=== PATIENT | female | born 1985 | race Hispanic/Latino ===

== ENCOUNTER 2018-02-16 09:32 | Emergency (ER) | payer BC, OTHER ==
[2018-02-16] MEDS ORDERED: Sodium Chloride 0.9% 1,000 ML IV SCH (10:00)
[2018-02-16] MEDS ORDERED: Iodixanol 320 MG/ML 100 ML BOTTLE IV ONE (10:13)
[2018-02-16] MEDS ORDERED: Sodium Chloride 0.9% 100 ML ONE (10:15)
--- NOTE | 2018-02-16 10:19 | CT ---
PROCEDURE: CT HEAD WITHOUT CONTRAST. HISTORY: code stroke COMPARISON: None available. TECHNIQUE: Axial computed tomography images were obtained through the head/brain without intravenous contrast. Radiation dose: Total exam DLP = 807.30 mGy-cm. This CT exam was performed using one or more of the following dose reduction techniques: Automated exposure control, adjustment of the mA and/or kV according to patient size, and/or use of iterative reconstruction technique. FINDINGS: HEMORRHAGE: No intracranial hemorrhage. BRAIN: Khan-white matter differentiation is preserved. There is no mass, mass effect or abnormal extra-axial fluid collection. There is no territorial infarction. VENTRICLES: The ventricles are normal in size, shape and configuration. CALVARIUM: The skull base and calvarium are normal. PARANASAL SINUSES: There is mild mucosal thickening in the right maxillary sinus and chronic right ethmoid sinusitis. The remaining included paranasal sinuses are predominantly clear. MASTOID AIR CELLS: Predominantly clear. OTHER FINDINGS: None. IMPRESSION: No acute intracranial abnormality. If there is a persistent focal neurologic deficit and an ongoing clinical concern for acute infarction, an MRI of the brain without intravenous contrast would be a more sensitive modality for evaluation of hyperacute/acute ischemic infarction. Important findings were discussed with Dr. Manuela Palacio in the ER on 02/16/2018 at 10:17 a.m.
[2018-02-16 10:27] LABS: BASO % 0.4 % (0.0-2.0); EOS # 0.1 K/uL (0.0-0.7); EOS % 2.2 % (0.0-4.0); HEMOGLOBIN 12.1 g/dL (12.0-16.0); LYMPH # 2.3 K/uL (1.0-4.3); LYMPH % 34.5 % (20.0-40.0); MEAN CELL VOLUME 88.9 fl (81.0-99.0); MEAN CORPUSCULAR HEMOGLOBIN 29.8 pg (27.0-31.0); MEAN CORPUSCULAR HGB CONC 33.5 g/dL (33.0-37.0); MEAN PLATELET VOLUME 8.5 fl (7.2-11.7); MONO # 0.6 K/uL (0.0-0.8); MONO % 9.1 % (0.0-10.0); NEUT # 3.5 K/uL (1.8-7.0); NEUT % 53.8 % (50.0-75.0); RBC 4.07 Mil/uL (3.80-5.20); RED CELL DISTRIBUTION WIDTH 13.6 % (11.5-14.5); WHITE BLOOD COUNT 6.6 K/uL (4.8-10.8)
[2018-02-16 10:44] LABS: ALB/GLOB RATIO 1.3 (1.0-2.1); ALBUMIN 4.1 g/dL (3.5-5.0); ALT/SGPT 60 U/L (9-52); AST/SGOT 45 U/L (14-36); BLOOD UREA NITROGEN 13 mg/dl (7-17); CALCIUM 9.4 mg/dL (8.4-10.2); GFR AFRICAN-AMERICAN > 60; GFR NON-AFRICAN AMERICAN > 60; HDL CHOLESTEROL 58 MG/DL (30-70); PARTIAL THROMBOPLASTIN TIME 29.6 Seconds (25.6-37.1); PROTHROMBIN TIME 10.5 Seconds (9.8-13.1)
[2018-02-16 10:55] LABS: LDL CHOLESTEROL 82 mg/dL (0-129)
--- NOTE | 2018-02-16 11:17 | ED PDOC ---
HPI:STROKE - Time Time: 09:50 - Historian Historian: Patient - Onset Date: 02/16/18 Time: 08:30 - TPA Positive for Contraindication: Yes - Notes: Notes:: Pt reports L sided ASHFORD since yesterday, took Excedrin with relief, started having blurry vision in the LLQ of L eye @ 8:30 AM today, when reading something some letters disappeared, lasted ~1 hour, resolved at present. Pt is 7 weeks post-, no blood pressure issues during but had migraines. Restarted on OCP 1.5 weeks ago. NIHSS Stroke Scale - Date/Time Evaluation Performed Date Performed: 02/16/18 Time Performed: 09:55 When Was NIHSS Performed: Code Stroke - How Severe is the Stroke Level of Consciousness: 0=Alert LOC to Questions: 0=Both comments correct LOC to commands: 0=Obeys both correctly Best Gaze: 0=Normal Visual: 0=No visual loss Facial: 0=Normal Motor Arm - Left: 0=No drift Motor Arm - Right: 0=No drift Motor Leg - Left: 0=No drift Motor Leg - Right: 0=No drift Limb Ataxia: 0=Absent Sensory: 0=Normal Best Language: 0=No aphasia Dysarthia: 0=Normal articulation Extinction & Inattention (Neglect): 0=Normal, no object Score: 0 rTPA Inclusion/Exclusion - Refusal of Treatment Patient Refused Treatment: No - Inclusion Criteria for Altepase Patient is 18 years or Older: Yes The Clinical Diagnosis of Ischemic Stroke That is Causing a Potentially Disabling Neurological Deficit: Yes Time of Onset is Well Established to be Less Than 270 Minute Before Treatment Would Begin: Yes Risk/Benefit Discussed With Patient/Family Member Present: No - Warning to TPA With Conditions Condition: Rapid Improvement Past Medical History Reviewed: Nursing Documentation, Vital Signs Vital Signs: Last Vital Signs Temp 97 F L 02/16/18 10:04 Pulse 47 L 02/16/18 10:48 Resp 20 02/16/18 10:48 BP 148/82 02/16/18 10:04 Pulse Ox 99 02/16/18 10:48 - Medical History PMH: Migraine - Surgical History Surgical History: Tonsillectomy - Family History Family History: States: Unknown Family Hx - Living Arrangements Living Arrangements: With Family - Social History Current smoker - smoking cessation education provided: No Alcohol: None - Home Medications Home Medications: Ambulatory Orders Medication Instructions Recorded Levonorgest/Eth.estradiol/Iron 1 tab PO HS 02/16/18 [Balcoltra Tablet] Naproxen [Naprosyn] 500 mg PO BID PRN #15 tablet 02/16/18 Multivit/Folic Acid/I 1 tab PO HS 02/16/18 [] - Allergies Allergies/Adverse Reactions: Allergies Allergy/AdvReac Type Severity Reaction Status Date / Time No Known Allergies Allergy Verified 02/16/18 10:04 Review of Systems Constitutional: Negative for: Fever, Chills Eyes: Positive for: Vision Change. Negative for: Redness Cardiovascular: Negative for: Chest Pain, Palpitations Respiratory: Negative for: Cough, Shortness of Breath Gastrointestinal: Negative for: Nausea, Vomiting, Abdominal Pain, Diarrhea Musculoskeletal: Negative for: Neck Pain, Back Pain Skin: Negative for: Rash, Lesions Neurological: Negative for: Weakness, Numbness, Incoordination, Change in Speech , Confusion, Seizures, Altered Mental Status, Headache, Dizziness Physical Exam - Reviewed Nursing Documentation Reviewed: Yes Vital Signs Reviewed: Yes - Physical Exam Appears: Positive for: In Acute Distress (Crying) Head Exam: Positive for: ATRAUMATIC, NORMAL INSPECTION Skin: Positive for: Normal Color, Warm, Dry Eye Exam: Positive for: Normal appearance, EOMI, PERRL. Negative for: Nystagmus , Periorbital swelling, Periorbital tenderness, Conjunctival injection, Scleral icterus Neck: Positive for: Normal, Painless ROM, Supple Cardiovascular/Chest: Positive for: Bradycardia. Negative for: Irregularly Irregular Respiratory: Positive for: Normal Breath Sounds Extremity: Positive for: Normal ROM Neurologic/Psych: Positive for: Alert, curator medical museum II-XII, Oriented. Negative for: Motor/Sensory Deficits, Aphasia, Facial Droop - Laboratory Results Result Diagrams: 02/16/18 10:18 02/16/18 10:18 - ECG Interpretation Of ECG: Sinus matt @ 37, no ST-T changes. O2 Sat by Pulse Oximetry: 99 Pulse Ox Interpretation: Normal - Progress ED Course And Treament: ASHFORD has resolved. Re-evaluation Time: 14:30 Condition: Improved - Physician Consult Information Time Consulting Physican Contacted: 10:00 Physician Contacted: Geoff Siegel Outcome Of Conversation: Recommends CT head, CTA, MRI brain and MRV brain. - Core Measure Core Measure Indicators: Code Stroke - Critical Care Total Time (In Min): 45 Medical Decision Making Medical Decision Makin yo with transient visual change. - code stroke - labs - EKG - CXR - CT head - Neuro consult Accession No. : [id number] Patient Name / ID : BETY CROSS / [id number] Exam Date : 02/16/2018 10:02:19 ( Approved ) Study Comment : Sex / Age : F / 32Y Creator : Ana Martin MD Dictator : Ana Martin MD Entry Specialists : Finance Associate : Ana Martin MD Approver2 : Report Date : 02/16/2018 10:17:59 My Comment : PROCEDURE: CT HEAD WITHOUT CONTRAST. HISTORY: code stroke COMPARISON: None available. TECHNIQUE: Axial computed tomography images were obtained through the head/brain without intravenous contrast. Radiation dose: Total exam DLP = 807.30 mGy-cm. This CT exam was performed using one or more of the following dose reduction techniques: Automated exposure control, adjustment of the mA and/or kV according to patient size, and/or use of iterative reconstruction technique. FINDINGS: HEMORRHAGE: No intracranial hemorrhage. BRAIN: Khan-white matter differentiation is preserved. There is no mass, mass effect or abnormal extra-axial fluid collection. There is no territorial infarction. VENTRICLES: The ventricles are normal in size, shape and configuration. CALVARIUM: The skull base and calvarium are normal. PARANASAL SINUSES: There is mild mucosal thickening in the right maxillary sinus and chronic right ethmoid sinusitis. The remaining included paranasal sinuses are predominantly clear. MASTOID AIR CELLS: Predominantly clear. OTHER FINDINGS: None. IMPRESSION: No acute intracranial abnormality. If there is a persistent focal neurologic deficit and an ongoing clinical concern for acute infarction, an MRI of the brain without intravenous contrast would be a more sensitive modality for evaluation of hyperacute/acute ischemic infarction. Accession No. : [id number] Patient Name / ID : BETY CROSS / [id number] Exam Date : 02/16/2018 10:18:55 ( Approved ) Study Comment : Sex / Age : F / 32Y Creator : Ana Martin MD Dictator : Ana Martin MD Entry Specialists : Finance Associate : Ana Martin MD Approver2 : Report Date : 02/16/2018 11:25:24 My Comment : PROCEDURE: CTA HEAD AND NECK WITH CONTRAST HISTORY: Headache and blurry lesion COMPARISON: None available. TECHNIQUE: Initial noncontrast head CT was performed. Subsequently, CT angiogram of the head and neck were performed after the intravenous administration of 80 mL of Omnipaque 350. Contiguous 1.5mm thick images were obtained in the axial plane of the neck. 2-D coronal and sagittal MPR images were obtained. Imaging postprocessing was performed with 3-D images also obtained. A delayed contrast head CT was also obtained. This CT exam was performed using one or more of the following dose reduction techniques: Automated exposure control, adjustment of the mA and/or kV according to patient size, and/or use of iterative reconstruction technique. Contrast dose: 100 mL Visipaque 320 Radiation dose: Total exam DLP = 533.47 mGy-cm. FINDINGS: HEAD: Right: The intracranial internal carotid artery, and anterior and middle cerebral arteries are widely patent. The right A1 segment is hypoplastic, an anatomic variant. Left: The intracranial internal carotid artery, and anterior and middle cerebral arteries are widely patent. Posterior circulation: The visualized intracranial vertebral arteries, basilar artery and posterior cerebral arteries are widely patent. Ther is no endoluminal filling defect to suggest thrombus. There is no intracranial saccular aneurysm. NECK: There is a three vessel aortic arch. There is no stenosis at the origins of the great vessels at the level of the aortic arch. Right Carotid: On the right, the common carotid, internal carotid and external carotid arteries are widely patent. There is no hemodynamically significant stenosis in the internal carotid artery by NASCET criteria. Left Carotid: On the left, the common carotid, internal carotid and external carotid arteries are widely patent. There is no hemodynamically significant stenosis in the internal carotid artery by NASCET criteria. The vertebral arteries are widely patent. The right vertebral artery is hypoplastic, an anatomic variant. The visualized soft tissues of the neck are normal. The visualized brain and cervical spine are within normal limits. The lung apices are clear. IMPRESSION: No evidence of endoluminal thrombus, occlusion or definite significant stenosis. No evidence of hemodynamically significant stenosis in the internal carotid arteries by NASCET criteria. Patent bilateral vertebral arteries. The right vertebral artery is hypoplastic, an anatomic variant. Accession No. : [id number] Patient Name / ID : BETY CROSS / [id number] Exam Date : 02/16/2018 10:35:05 ( Approved ) Study Comment : Sex / Age : F / 32Y Creator : Ana Martin MD Dictator : Ana Martin MD Entry Specialists : Finance Associate : Ana Martin MD Approver2 : Report Date : 02/16/2018 12:20:21 My Comment : PROCEDURE: MRI BRAIN WITHOUT CONTRAST HISTORY: OS LLQ visual deficit COMPARISON: Noncontrast head CT performed earlier the same day TECHNIQUE: Multiplanar, multisequence MR images of the brain were obtained without intravenous contrast enhancement. FINDINGS: HEMORRHAGE: None DWI: No evidence of an acute or early subacute infarction. BRAIN PARENCHYMA: Khan-white matter differentiation is preserved. There is no mass, mass effect or abnormal extra-axial fluid collection. There is no territorial infarction. The midline sagittal structures are normal. VENTRICLES: The ventricles are normal in size, shape and configuration. CRANIUM: There is normal bone marrow signal pattern. ORBITS: Grossly unremarkable. PARANASAL SINUSES/MASTOIDS: There is moderate polypoid mucosal thickening in the right maxillary sinus. There is also moderate chronic right anterior ethmoid sinusitis. There is mild mucosal thickening in the frontal and sphenoid sinuses. VASCULAR SYSTEM: Skull base flow voids intact. OTHER FINDINGS: None. IMPRESSION: No acute intracranial abnormality. Specifically, no evidence for acute infarction or demyelinating disease. Moderate chronic right maxillary and anterior ethmoid sinusitis. Accession No. : [id number] Patient Name / ID : BETY CROSS / [id number] Exam Date : 02/16/2018 11:00:55 ( Approved ) Study Comment : Sex / Age : F / 32Y Creator : Ana Martin MD Dictator : Ana Martin MD Entry Specialists : Finance Associate : Ana Martin MD Approver2 : Report Date : 02/16/2018 12:33:37 My Comment : PROCEDURE: MR Venography of the Brain HISTORY: OS LLQ visual deficit COMPARISON: None available. TECHNIQUE: 2D time of flight venography of the brain was performed. Rotating MIP images of the intracranial veins were generated. FINDINGS: SUPERFICIAL VEINS: Superior Sagittal Sinus: Patent. Inferior Sagittal Sinus:Patent. Transverse Sinuses: Patent. Sigmoid Sinuses:Patent. DEEP VEINS: Internal Cerebral Veins: Patent. Straight Sinus: Patent. IMPRESSION: Normal MR Venography of the Brain. No evidence of dural venous sinus thrombosis. Accession No. : [id number] Patient Name / ID : BETY ATKINSI / [id number] Exam Date : 02/16/2018 11:46:49 ( Approved ) Study Comment : Sex / Age : F / 32Y Creator : Ana Martin MD Dictator : Ana Martin MD Entry Specialists : Finance Associate : Ana Martin MD Approver2 : Report Date : 02/16/2018 12:13:29 My Comment : HISTORY: Code Stroke COMPARISON: No prior. FINDINGS: LUNGS: The lungs are well inflated and clear. PLEURA: No significant pleural effusion identified, no pneumothorax apparent. CARDIOVASCULAR: Normal. OSSEOUS STRUCTURES: No significant abnormalities. VISUALIZED UPPER ABDOMEN: Normal. OTHER FINDINGS: None. IMPRESSION: No active pulmonary disease. HR high 30s-40s, upon review of old records pt's HR runs low (50s). Pt states her HR is normally low, avid runner, asymptomatic, no CP, SOB, no dizziness. 13:[address] Siegel in ED, recommends Decadron 10 mg, MgSO4 1 g and Depakote 500 mg IV. Can be discharged home after medications. Disposition - Clinical Impression Clinical Impression: Ocular migraine, Sinus bradycardia - Disposition Referrals: Geoff Siegel MD [Medical Doctor] - [facility] [place] [Outside] Condition: IMPROVED Prescriptions: Naproxen [Naprosyn] 500 mg PO BID PRN #15 tablet PRN Reason: Pain, Moderate (4-7) Instructions: Bradycardia, Migraine Headaches in Adults Forms: [employer] (Ugandan)
--- NOTE | 2018-02-16 11:27 | CT ---
PROCEDURE: CTA HEAD AND NECK WITH CONTRAST HISTORY: Headache and blurry lesion COMPARISON: None available. TECHNIQUE: Initial noncontrast head CT was performed. Subsequently, CT angiogram of the head and neck were performed after the intravenous administration of 80 mL of Omnipaque 350. Contiguous 1.5mm thick images were obtained in the axial plane of the neck. 2-D coronal and sagittal MPR images were obtained. Imaging postprocessing was performed with 3-D images also obtained. A delayed contrast head CT was also obtained. This CT exam was performed using one or more of the following dose reduction techniques: Automated exposure control, adjustment of the mA and/or kV according to patient size, and/or use of iterative reconstruction technique. Contrast dose: 100 mL Visipaque 320 Radiation dose: Total exam DLP = 533.47 mGy-cm. FINDINGS: HEAD: Right: The intracranial internal carotid artery, and anterior and middle cerebral arteries are widely patent. The right A1 segment is hypoplastic, an anatomic variant. Left: The intracranial internal carotid artery, and anterior and middle cerebral arteries are widely patent. Posterior circulation: The visualized intracranial vertebral arteries, basilar artery and posterior cerebral arteries are widely patent. Ther is no endoluminal filling defect to suggest thrombus. There is no intracranial saccular aneurysm. NECK: There is a three vessel aortic arch. There is no stenosis at the origins of the great vessels at the level of the aortic arch. Right Carotid: On the right, the common carotid, internal carotid and external carotid arteries are widely patent. There is no hemodynamically significant stenosis in the internal carotid artery by NASCET criteria. Left Carotid: On the left, the common carotid, internal carotid and external carotid arteries are widely patent. There is no hemodynamically significant stenosis in the internal carotid artery by NASCET criteria. The vertebral arteries are widely patent. The right vertebral artery is hypoplastic, an anatomic variant. The visualized soft tissues of the neck are normal. The visualized brain and cervical spine are within normal limits. The lung apices are clear. IMPRESSION: No evidence of endoluminal thrombus, occlusion or definite significant stenosis. No evidence of hemodynamically significant stenosis in the internal carotid arteries by NASCET criteria. Patent bilateral vertebral arteries. The right vertebral artery is hypoplastic, an anatomic variant.
--- NOTE | 2018-02-16 12:15 | RAD ---
HISTORY: Code Stroke COMPARISON: No prior. FINDINGS: LUNGS: The lungs are well inflated and clear. PLEURA: No significant pleural effusion identified, no pneumothorax apparent. CARDIOVASCULAR: Normal. OSSEOUS STRUCTURES: No significant abnormalities. VISUALIZED UPPER ABDOMEN: Normal. OTHER FINDINGS: None. IMPRESSION: No active pulmonary disease.
--- NOTE | 2018-02-16 12:21 | MRI ---
PROCEDURE: MRI BRAIN WITHOUT CONTRAST HISTORY: OS LLQ visual deficit COMPARISON: Noncontrast head CT performed earlier the same day TECHNIQUE: Multiplanar, multisequence MR images of the brain were obtained without intravenous contrast enhancement. FINDINGS: HEMORRHAGE: None DWI: No evidence of an acute or early subacute infarction. BRAIN PARENCHYMA: Khan-white matter differentiation is preserved. There is no mass, mass effect or abnormal extra-axial fluid collection. There is no territorial infarction. The midline sagittal structures are normal. VENTRICLES: The ventricles are normal in size, shape and configuration. CRANIUM: There is normal bone marrow signal pattern. ORBITS: Grossly unremarkable. PARANASAL SINUSES/MASTOIDS: There is moderate polypoid mucosal thickening in the right maxillary sinus. There is also moderate chronic right anterior ethmoid sinusitis. There is mild mucosal thickening in the frontal and sphenoid sinuses. VASCULAR SYSTEM: Skull base flow voids intact. OTHER FINDINGS: None. IMPRESSION: No acute intracranial abnormality. Specifically, no evidence for acute infarction or demyelinating disease. Moderate chronic right maxillary and anterior ethmoid sinusitis.
--- NOTE | 2018-02-16 12:35 | MRI ---
PROCEDURE: MR Venography of the Brain HISTORY: OS LLQ visual deficit COMPARISON: None available. TECHNIQUE: 2D time of flight venography of the brain was performed. Rotating MIP images of the intracranial veins were generated. FINDINGS: SUPERFICIAL VEINS: Superior Sagittal Sinus: Patent. Inferior Sagittal Sinus:Patent. Transverse Sinuses: Patent. Sigmoid Sinuses:Patent. DEEP VEINS: Internal Cerebral Veins: Patent. Straight Sinus: Patent. IMPRESSION: Normal MR Venography of the Brain. No evidence of dural venous sinus thrombosis.
[2018-02-16 12:45] LABS: T4 7.81 ug/dl (5.5-11.0)
[2018-02-16 12:59] LABS: T3 0.89 nmol/L (1.49-2.60)
[2018-02-16] MEDS ORDERED: Dexamethasone 10 MG in Sodium Chloride 0.9% 50 ML IV STA (13:49)
[2018-02-16] MEDS ORDERED: Valproate 500 MG in Sodium Chloride 0.9% 100 ML IVPB ONE (14:00)
[2018-02-16] MEDS ORDERED: Magnesium Sulfate 1 GM in Dextrose 5% In Water 100 ML IVPB ONE (14:15)
[2018-02-16 16:11] VITALS: BP 106/62; PULSE 47; RESP 18; TEMP 98.1; O2SAT 98
--- NOTE | 2018-02-16 19:32 | CP.PCM.CON ---
History of Present Illness - History of Present Illness History of Present Illness: Ms. Diez is a 32-year-old woman who is 7 weeks post- and has a history of migraine headaches, who states that she developed blurry vision and a headache this morning. She presented to the ED, where she said her vision was improving, but she still felt that the bottom left quadrant was abnormal. An MRI and MRA/V was done and all imaging was normal. When I saw the patient, she continued to complain of headache, but the vision had improved. The headache was bitemporal, pressure like, associated with photophobia, and nausea, but no vomiting. It was rated an 8/10 in severity. Review of Systems - Review of Systems All systems: reviewed and no additional remarkable complaints except Past Patient History - Past Social History Alcohol: None - NEUROLOGICAL Hx Migraine: Yes - PSYCHIATRIC Hx Substance Use: No - SURGICAL HISTORY Hx Tonsillectomy: Yes - ANESTHESIA Hx Anesthesia: Yes Hx Anesthesia Reactions: No Meds Home Medications: Home Medication List Medication Instructions Recorded Confirmed Type Naproxen [Naprosyn] 500 mg PO BID PRN #15 tablet 02/16/18 Rx Allergies/Adverse Reactions: Allergies Allergy/AdvReac Type Severity Reaction Status Date / Time No Known Allergies Allergy Verified 02/16/18 10:04 Physical Exam - Constitutional Appears: Well - Head Exam Head Exam: ATRAUMATIC, NORMAL INSPECTION, NORMOCEPHALIC - Neurological Exam Neurological exam: Alert, CN II-XII Intact, Normal Gait, Oriented x3, Reflexes Normal Additional comments: NIHSS = 0 Results - Vital Signs Recent Vital Signs: Last Vital Signs Temp 98.1 F 02/16/18 16:10 Pulse 47 L 02/16/18 16:10 Resp 18 02/16/18 16:10 BP 106/62 02/16/18 16:10 Pulse Ox 98 02/16/18 16:10 - Labs Result Diagrams: 02/16/18 10:18 02/16/18 10:18 Labs: Laboratory Results - last 24 hr 02/16/18 02/16/18 02/16/18 09:58 10:15 10:18 WBC 6.6 RBC 4.07 Hgb 12.1 Hct 36.2 MCV 88.9 MCH 29.8 MCHC 33.5 RDW 13.6 Plt Count 283 MPV 8.5 Neut % (Auto) 53.8 Lymph % (Auto) 34.5 [place] % (Auto) 9.1 Eos % (Auto) 2.2 Baso % (Auto) 0.4 Neut # (Auto) 3.5 Lymph # (Auto) 2.3 [place] # (Auto) 0.6 Eos # (Auto) 0.1 Baso # (Auto) 0.0 PT INR APTT Sodium Potassium Chloride Carbon Dioxide Anion Gap BUN Creatinine Est GFR ( Amer) Est GFR (Non-Af Amer) POC Glucose (mg/dL) 119 H Random Glucose Hemoglobin A1c 5.2 Calcium Total Bilirubin AST ALT Alkaline Phosphatase Troponin I Total Protein Albumin Globulin Albumin/Globulin Ratio Triglycerides Cholesterol LDL Cholesterol Direct HDL Cholesterol Thyroxine (T4) Total T3 TSH 3rd Generation Blood Type Blood Type Confirm Antibody Screen BBK History Checked 02/16/18 02/16/18 02/16/18 10:18 10:18 11:50 WBC RBC Hgb Hct MCV MCH MCHC RDW Plt Count MPV Neut % (Auto) Lymph % (Auto) [place] % (Auto) Eos % (Auto) Baso % (Auto) Neut # (Auto) Lymph # (Auto) [place] # (Auto) Eos # (Auto) Baso # (Auto) PT 10.5 INR 1.0 APTT 29.6 Sodium 141 Potassium 4.0 Chloride 101 Carbon Dioxide 28 Anion Gap 16 BUN 13 Creatinine 0.6 L Est GFR ( Amer) > 60 Est GFR (Non-Af Amer) > 60 POC Glucose (mg/dL) Random Glucose 76 Hemoglobin A1c Calcium 9.4 Total Bilirubin 0.4 AST 45 H ALT 60 H Alkaline Phosphatase 73 Troponin I < 0.0120 Total Protein 7.1 Albumin 4.1 Globulin 3.0 Albumin/Globulin Ratio 1.3 Triglycerides 132 Cholesterol 180 LDL Cholesterol Direct 82 HDL Cholesterol 58 Thyroxine (T4) Total T3 TSH 3rd Generation Blood Type O POSITIVE Blood Type Confirm Antibody Screen Negative BBK History Checked No verified bt 02/16/18 02/16/18 11:55 14:30 WBC RBC Hgb Hct MCV MCH MCHC RDW Plt Count MPV Neut % (Auto) Lymph % (Auto) [place] % (Auto) Eos % (Auto) Baso % (Auto) Neut # (Auto) Lymph # (Auto) [place] # (Auto) Eos # (Auto) Baso # (Auto) PT INR APTT Sodium Potassium Chloride Carbon Dioxide Anion Gap BUN Creatinine Est GFR ( Amer) Est GFR (Non-Af Amer) POC Glucose (mg/dL) Random Glucose Hemoglobin A1c Calcium Total Bilirubin AST ALT Alkaline Phosphatase Troponin I Total Protein Albumin Globulin Albumin/Globulin Ratio Triglycerides Cholesterol LDL Cholesterol Direct HDL Cholesterol Thyroxine (T4) 7.81 Total T3 0.890 L TSH 3rd Generation 2.15 Blood Type Blood Type Confirm O POSITIVE Antibody Screen BBK History Checked Assessment & Plan (1) Ocular migraine Assessment and Plan: Will treat the headache with decadron 10 mg IV, depakote 500 mg IV and magnesium sulfate 2 grams IV. The patient does not breast feed, so these medications will not affect the baby. No further imaging is needed at this time. CVT was ruled out as was a stroke. Please follow up with the neurology outpatient office. Thank you. Status: Acute Priority: Medium
--- NOTE | 2018-02-17 17:26 | CARD ---
APPROVED REPORT EKG Measurement Heart [id number] <Conclusion> Marked sinus bradycardia Rightward axis Abnormal ECG
== END 2018-02-16 16:10 | disposition home or self-care (01) ==
LOC: H.ER 09:32
DX: G43.109 Migraine with aura, not intractable, without status migrainosus (principal); R00.1 Bradycardia, unspecified; J32.2 Chronic ethmoidal sinusitis
CPT/HCPCS: 70450; 70496; 70498; 70544; 70551; 71045; 80053; 80061; 82948; 83036; 84436; 84443; 84480; 84484; 85025; 85610; 85730; 86850; 86900; 93005; 96365; 96367; 96375; 99285; J1100; J3475; J7030; Q9967